=== PATIENT | male | born 1965 | race African-American/Black ===

== ENCOUNTER 2021-08-20 15:47 | Emergency (ER) | payer MEDICAID ==
[~2021-08-20] VITALS: Ht 175.3 cm; Wt 90.0 kg
[2021-08-20 21:23] VITALS: BP 130/72
== END 2021-08-20 21:28 | disposition home or self-care (01) ==
LOC: ER 15:47
DX: U07.1 COVID-19 (principal)
CPT/HCPCS: 71045; 99284; C9803; U0003; U0005